=== PATIENT | female | born 1960 | race Caucasian/White ===

== ENCOUNTER 2016-07-09 04:40 | Emergency (ER) | payer BC ==
[2016-07-09 04:49] VITALS: BP 127/79; PULSE 82; TEMP 98.1; BMI 18.8
--- NOTE | 2016-07-09 04:53 | PDOC ---
History of Present Illness - General Chief Complaint: Pain Stated Complaint: NUMBNESS RIGHT ARM Time Seen by Provider: 07/09/16 04:47 History Source: Patient, Spouse Exam Limitations: No Limitations - History of Present Illness Initial Comments: 07/09/16 04:48 56 Y F NO PMHX BUT HASN'T SEEN AN MD FOR YEARS. HX OF NECK PROBLEMS. PTE C/O NUMBNESS OF HER RT ARM AND HAND. INTERMITTENT, SINCE SATURDAY. NO HEAD ACHE, NO N/ V. NO SPEECH OR VISUAL CHANGES. NO PARESTHESIAS ANYWHERE ELSE. SX COME WHEN SITTING OR LAYING DOWN AND GET BETTER AFTER MOVING/SHAKING HER ARM. DISTANT HX OF TRIGGER POINT INJECTIONS FOR SIMILAR PROBLEMS. IN ED, IN NAD. AMBULATORY W. A STEADY GAIT. Past History - Past Medical History Allergies/Adverse Reactions: Allergies Allergy/AdvReac Type Severity Reaction Status Date / Time Penicillins Allergy Verified 07/09/16 04:42 Home Medications: Ambulatory Orders NK [No Known Home Medication] 07/09/16 Review of Systems - Review of Systems Able to Perform ROS?: Yes Is the patient limited Ukrainian proficient: No Constitutional: No: Symptoms Reported HEENTM: No: Symptoms Reported Respiratory: No: Symptoms reported Cardiac (ROS): No: Symptoms Reported ABD/GI: No: Symptoms Reported : No: Symptoms Reported Musculoskeletal: No: Symptoms Reported Integumentary: No: Symptoms Reported Neurological: Yes: Symptoms reported, See HPI, Numbness, Paresthesia *Physical Exam - Physical Exam General Appearance: Yes: Nourished, Appropriately Dressed. No: Apparent Distress HEENT: positive: EOMI, TIM, Normal ENT Inspection, Normal Voice, Symmetrical Neck: positive: Supple, Other (TRIGGER POINT RT TRAPZ TRIGERING NUMBNESS IN ARM) . negative: Tender Respiratory/Chest: positive: Lungs Clear, Normal Breath Sounds. negative: Chest Tender, Respiratory Distress Cardiovascular: positive: Regular Rhythm, Regular Rate Musculoskeletal: positive: Normal Inspection. negative: Vertebral Tenderness Integumentary: positive: Normal Color. negative: Cyanotic Neurologic: positive: advertising account representative II-XII NML intact, Fully Oriented, Alert, Normal Mood/ Affect, Normal Response, Motor Strength 5/5, Numbness, Other (NO DRIFT. ). negative: Sensory Deficit *DC/Admit/Observation/Transfer Diagnosis at time of Disposition: Cervical radiculopathy at C6 - Discharge Dispostion Disposition: HOME Condition at time of disposition: Stable - Patient Instructions Additional Instructions: IBUPROFEN 600 MG 4 TIMES A DAY FOR 3 DAYS SEE YOUR DOCTOR TODAY RETURN IF SYMPTOMS WORSEN OR NEW AREAS INVOLVED.
== END 2016-07-09 04:56 | disposition home or self-care (01) ==
LOC: FER 04:40
DX: M54.12 Radiculopathy, cervical region (principal)
CPT/HCPCS: 99281-25